=== PATIENT | female | born 1980 | race Two or more races ===

== ENCOUNTER 2018-05-24 12:58 | Emergency (ER) | payer SELFPAY ==
[~2018-05-24] VITALS: Ht 154.9 cm; Wt 59.4 kg
[2018-05-24 13:26] LABS: BASO # 0.1 x10^3/uL (0.0-0.2); BASO % 1 % (0-3); EOS # 0.1 x10^3/uL (0.0-0.7); EOS % 1 % (0-3); HEMATOCRIT 41.7 % (36.0-47.0); HEMOGLOBIN 14.7 g/dL (12.0-15.5); LYMPH % 15 % (24-48); MEAN CORPUSCULAR HEMOGLOBIN 30 pg (25-35); MEAN CORPUSCULAR HGB CONC 35 g/dL (31-37); MEAN CORPUSCULAR VOLUME 85 fL (79-100); MONO # 0.7 x10^3/uL (0.0-1.1); MONO % 5 % (0-9); NEUT # 10.7 x10^3uL (1.8-7.7); NEUT % 79 % (31-73); PLATELET COUNT 349 x10^3/uL (140-400); RED BLOOD COUNT 4.93 x10^6/uL (3.50-5.40); RED CELL DISTRIBUTION WIDTH 14.5 % (11.5-14.5); WHITE BLOOD COUNT 13.7 x10^3/uL (4.0-11.0)
--- NOTE | 2018-05-24 13:27 | PHYS DOC ---
Adult General Chief Complaint Chief Complaint: NEURO SYMPTOMS/DEFICITS HPI HPI Patient is a 38 year old female who presents to the ER with complaints of inability to move left left and left arm since 2230 or 2300 last night. Pt states she was watching a youtube video when she dropped her phone that was in her left hand and was unable to pick it back up. She denies falling but states that she dropped her phone she went to the bathroom and her left leg gave out when she tried to get up so she sat down on the floor and was unable to get back up. She currently reports pain in the right side of her neck. She denies any medical history, surgical history, medication use, drug use, alcohol use, or smoking. She denies any drug allergies. states that when he got home at 0700 her helped her up from the floor, the patient refused to have an ambulance called at that time. Patient denies any vision changes, or difficulty speaking. denies any slurred speech or confusion. Patient denies any recent illness or injury prior to the onset of these symptoms. Review of Systems Review of Systems Constitutional: Denies fever or chills [] Eyes: Denies change in visual acuity, redness, or eye pain [] ENT: reports R sided neck pain, denies ear pain Respiratory: Denies cough or shortness of breath [] Cardiovascular: denies chest pain GI: Denies abdominal pain, nausea, vomiting, or diarrhea [] Musculoskeletal: Denies joint pain [] Neurologic: Denies headache or sensory changes, reports Left arm and left leg weakness, see NIH stroke scale [] Endocrine: Denies polyuria or polydipsia [] All other systems were reviewed and found to be within normal limits, except as documented in this note. Current Medications Current Medications Current Medications Medications (Trade) Dose Ordered Sig/Sarah Start Time Stop Time Status Last Admin Dose Admin Nicardipine/ Sodium Chloride 200 ml @ 27 mls/hr CONT PRN 05/24/18 13:30 05/24/18 14:40 DC 05/24/18 13:36 25 MLS/HR Allergies Allergies Allergies Coded Allergies Type Severity Reaction Last Updated Verified No Known Drug Allergies 05/24/18 No Physical Exam Physical Exam Constitutional: Well developed, well nourished, non-toxic appearance. [] HENT: Normocephalic, atraumatic, bilateral external ears normal, oropharynx moist, no oral exudates, nose normal. [] Eyes: PERRLA, EOMI, conjunctiva normal, no discharge. [] Neck: Normal range of motion, no tenderness, supple, no stridor. [] Cardiovascular:Heart rate regular rhythm, no murmur [] Lungs & Thorax: Bilateral breath sounds clear to auscultation [] Abdomen: Bowel sounds normal, soft, no tenderness, no masses, no pulsatile masses. [] Skin: Warm, dry, no erythema, no rash. [] Extremities: No tenderness, no cyanosis, no clubbing, no edema Neurologic: Alert and oriented X 3, normal sensory function, speech clear, follows commands: left sided facial droop, left arm, and left leg weakness see NIH stroke scale Psychologic: Affect normal, judgement normal, mood normal. [] Current Patient Data Vital Signs Vital Signs Date Time Temp Pulse Resp B/P (MAP) Pulse Ox O2 Delivery O2 Flow Rate FiO2 05/24/18 14:29 112 100 05/24/18 13:10 98.3 16 191/123 (145) Room Air 98.3 Lab Values Laboratory Tests Test 05/24/18 13:10 05/24/18 13:30 White Blood Count 13.7 x10^3/uL (4.0-11.0) H Red Blood Count 4.93 x10^6/uL (3.50-5.40) Hemoglobin 14.7 g/dL (12.0-15.5) Hematocrit 41.7 % (36.0-47.0) Mean Corpuscular Volume 85 fL (79-100) Mean Corpuscular Hemoglobin 30 pg (25-35) Mean Corpuscular Hemoglobin Concent 35 g/dL (31-37) Red Cell Distribution Width 14.5 % (11.5-14.5) Platelet Count 349 x10^3/uL (140-400) Neutrophils (%) (Auto) 79 % (31-73) H Lymphocytes (%) (Auto) 15 % (24-48) L Monocytes (%) (Auto) 5 % (0-9) Eosinophils (%) (Auto) 1 % (0-3) Basophils (%) (Auto) 1 % (0-3) Neutrophils # (Auto) 10.7 x10^3uL (1.8-7.7) H Lymphocytes # (Auto) 2.0 x10^3/uL (1.0-4.8) Monocytes # (Auto) 0.7 x10^3/uL (0.0-1.1) Eosinophils # (Auto) 0.1 x10^3/uL (0.0-0.7) Basophils # (Auto) 0.1 x10^3/uL (0.0-0.2) Prothrombin Time 13.0 SEC (11.7-14.0) Prothrombin Time INR 1.0 (0.8-1.1) PTT 28 SEC (24-38) Sodium Level 140 mmol/L (136-145) Potassium Level 3.2 mmol/L (3.5-5.1) L Chloride Level 101 mmol/L (98-107) Carbon Dioxide Level 26 mmol/L (21-32) Anion Gap 13 (6-14) Blood Urea Nitrogen 16 mg/dL (7-20) Creatinine 0.6 mg/dL (0.6-1.0) Estimated GFR (Cockcroft-Gault) 111.3 BUN/Creatinine Ratio 27 (6-20) H Glucose Level 105 mg/dL (70-99) H Calcium Level 8.9 mg/dL (8.5-10.1) Total Bilirubin 1.0 mg/dL (0.2-1.0) Aspartate Amino Transferase (AST) 16 U/L (15-37) Alanine Aminotransferase (ALT) 20 U/L (14-59) Alkaline Phosphatase 89 U/L (46-116) Creatine Kinase 113 U/L (26-192) Creatine Kinase MB (Mass) 1.4 ng/mL (0.0-3.6) Creatine Kinase MB Relative Index 1.2 % (0-4) Troponin I Quantitative < 0.017 ng/mL (0.000-0.055) Total Protein 8.2 g/dL (6.4-8.2) Albumin 3.8 g/dL (3.4-5.0) Albumin/Globulin Ratio 0.9 (1.0-1.7) L Serum Test, Qualitative Negative (NEG) Glucose (Fingerstick) 81 mg/dL (70-99) Laboratory Tests 05/24/18 13:10 Laboratory Tests 05/24/18 13:10 EKG EKG 1336-SR with leftward axis, no STEMI read by Dr. Lainez [] Radiology/Procedures Radiology/Procedures PROCEDURE: CT CODE STROKE HEAD WO CT head without contrast 05/24/2018 CLINICAL INDICATION: Left leg and arm weakness. COMPARISON: None TECHNIQUE: Multiple CT images of the head were obtained without contrast. *One or more of the following individualized dose reduction techniques were utilized for this examination: 1. Automated exposure control. 2. Adjustment of the mA and/or kV according to patient size. 3. Use of iterative reconstruction technique. FINDINGS: Right basal ganglia intraparenchymal hematoma with adjacent vasogenic edema measuring 4.0 x 2.1 cm. There is minimal kofaf-hr-ozmp midline shift measuring 2 mm. Effacement of the right lateral ventricle. IMPRESSION: Right basal ganglia intraparenchymal hematoma measuring up to 4.0 cm with resultant effacement of the right lateral ventricle and 2 mm ajpep-[id number]-[id number] midline shift. Location is commonly seen in hypertension. This result was discussed with NALDO Reyes, of the emergency service by telephone at 1:33 PM 05/24/[address] You Kennedy.[] Course & Med Decision Making Course & Med Decision Making Pertinent Labs and Imaging studies reviewed. (See chart for details) Dx: hemorrhagic stroke, R intraparenchymal hematoma of brain DDx: CVA, ischemia, aneurysm CT showed intraparenchymal hematoma with 2 mm right to left shift, no acute changes on EKG. WBC 13.7, coagulation unremarkable, Potassium 3.2, clucose 105, Troponin < 0.017 , CK and CKMB WNL, NIH stroke scale score 9 BP on arrival was 192/122. A cardene drip was initiated and BP was 122/78 at 1429 HR was 112 1332- Call from radiologist Dr. Kennedy who reports intraparenchymal hematoma with minimal 2 mm right to left shift. 1342- Spoke with Temitope LEMUS with neurosurgery Dr. Lehman and advised of patient and CT results, she will call back after talking with Dr. Lehman. 1353 Per Temitope LEMUS, Dr. Lehman concerned about aneurysm wants patient transferred to Dr. Dong will accept this patient; patient's films have been clouded to [facility] already by Temitope LEMUS 1350- Spoke with Kaleb at re: Pt transfer. He requests that vitals and labs be faxed to him at [phone]. Will arrange transfer of patient to at this time. [] Dragon Disclaimer Dragon Disclaimer This electronic medical record was generated, in whole or in part, using a voice recognition dictation system. Departure Departure Impression: Primary Impression: Intraparenchymal hematoma of brain Additional Impressions: Hemorrhagic stroke Hypertension Disposition: 02 TRANSFER [facility] HOS[facility] Condition: CRITICAL NIHSS Stroke Scale NIH Stroke Scale: NIH Stroke Scale Response (Comments) Value Level of Consciousness: 0 Alert/Responsive 0 LOC Questions: 0 Answers both correctly 0 LOC Commands: 0 Performs both tasks 0 Best Gaze: 0 Normal 0 Visual: 0 No visual loss 0 Facial Palsy: 2 Partial paralysis 2 Motor - Left Arm 4 No movement 4 Motor - Right Arm 0 No drift 0 Motor - Left Leg 3 Limb falls 3 Motor: Right Leg 0 No drift 0 Limb Ataxia: 0 Absent 0 Sensory: 0 No loss 0 Best Language: 0 Normal 0 Dysathria: 0 Normal 0 Extinction and Inattention: 0 Normal 0 Total 9 Problem Qualifiers Primary Impression: Intraparenchymal hematoma of brain Encounter type: initial encounter Laterality: right Loss of consciousness presence/duration: without LOC Qualified Codes: S06.340A - Traumatic hemorrhage of right cerebrum without loss of consciousness, initial encounter Additional Impressions: Hypertension Hypertension type: unspecified Qualified Codes: I10 - Essential (primary) hypertension MARIE MEDEL INTER[employer] MARKETING MANAGER May 24, 2018 13:27
[2018-05-24 13:32] LABS: PREG TEST PT QUAL NEGATIVE (NEG)
[2018-05-24 13:33] LABS: CALCIUM 8.9 mg/dL (8.5-10.1); CREATININE 0.6 mg/dL (0.6-1.0); GFR 111.3; POTASSIUM 3.2 mmol/L (3.5-5.1)
--- NOTE | 2018-05-24 13:36 | RAD ---
CT head without contrast 05/24/2018 CLINICAL INDICATION: Left leg and arm weakness. COMPARISON: None TECHNIQUE: Multiple CT images of the head were obtained without contrast. *One or more of the following individualized dose reduction techniques were utilized for this examination: 1. Automated exposure control. 2. Adjustment of the mA and/or kV according to patient size. 3. Use of iterative reconstruction technique. FINDINGS: Right basal ganglia intraparenchymal hematoma with adjacent vasogenic edema measuring 4.0 x 2.1 cm. There is minimal fcvfv-ce-mnqa midline shift measuring 2 mm. Effacement of the right lateral ventricle. IMPRESSION: Right basal ganglia intraparenchymal hematoma measuring up to 4.0 cm with resultant effacement of the right lateral ventricle and 2 mm wetcr-vz-kass midline shift. Location is commonly seen in hypertension. This result was discussed with NALDO Reyes, of the emergency service by telephone at 1:33 PM 05/24/[address] You Kennedy. Electronically signed by: You Kennedy MD (05/24/2018 1:33 PM) [facility]
[2018-05-24 13:45] LABS: ALBUMIN 3.8 g/dL (3.4-5.0); ALBUMIN/GLOBULIN RATIO 0.9 (1.0-1.7); TOTAL PROTEIN 8.2 g/dL (6.4-8.2)
--- NOTE | 2018-05-24 13:49 | EKG ---
[facility] [address] [place] [address] Test Date: 2018-05-24 Test Time: 13:36:03 Pat Name: NALDO RAMOS Department: Room: Gender: F Chemist Intern: : 1980 Requested By: MARIE MEDEL Order Number: [id number] Reading MD: Vivek Urbano Measurements Intervals [place] Rate: 100 P: 26 HI: 138 QRS: -20 QRSD: 80 T: 14 QT: 370 QTc: 481 Interpretive Statements SINUS RHYTHM LEFTWARD AXIS QRS(T) CONTOUR ABNORMALITY CONSIDER ANTEROSEPTAL MYOCARDIAL DAMAGE PROLONGED QT POSSIBLY ABNORMAL ECG RI6.01 No previous ECG available for comparison Electronically Signed On 05-28-2018 10:53:32 [employer]ARY BAR OPER[employer] by Vivek Urbano
[2018-05-24 14:29] VITALS: BP 122/78
== END 2018-05-24 14:39 | disposition short-term general hospital (02) ==
LOC: ER 12:58
DX: S06.340A Traumatic hemorrhage of right cerebrum without loss of consciousness, initial encounter (principal); R29.810 Facial weakness; M54.2 Cervicalgia; I10 Essential (primary) hypertension; X58.XXXA Exposure to other specified factors, initial encounter; Y93.89 Activity, other specified; Y92.091 Bathroom in other non-institutional residence as the place of occurrence of the external cause; Y99.8 Other external cause status
CPT/HCPCS: 36415; 70450; 80053; 82553; 82962; 84484; 84703; 85025; 85610; 85730; 93005; 96365; 99285